=== PATIENT | female | born 1985 | race Caucasian/White ===

== ENCOUNTER 2016-11-30 11:53 | Emergency (ER) | payer OTHER ==
[2016-11-30 11:57] VITALS: BP 109/71; PULSE 90; TEMP 98.2; BMI 26.2
[2016-11-30 12:59] LABS: URINE APPEARANCE CLOUDY; URINE BILIRUBIN NEGATIVE (NEGATIVE); URINE COLOR YELLOW; URINE GLUCOSE (UA) NEGATIVE (NEGATIVE); URINE KETONE 1+ (NEGATIVE); URINE NITRITE NEGATIVE (NEGATIVE); URINE UROBILINOGEN NEGATIVE E.U./dl (0.2-1.0)
[2016-11-30 13:03] LABS: URINE BLOOD 3+ (NEGATIVE); URINE LEUK ESTERASE 3+ (NEGATIVE); URINE PROTEIN 2+ (NEGATIVE)
[2016-11-30 13:09] LABS: URINE BACTERIA FEW /hpf (NONE SEEN); URINE MUCUS RARE; URINE RBC 495 /hpf (0-3); URINE WBC 1779 /hpf (3-5)
--- NOTE | 2016-11-30 13:10 | PDOC ---
History of Present Illness - General Chief Complaint: Urinary Problem Stated Complaint: ABD PAIN Time Seen by Provider: 11/30/16 12:18 History Source: Patient - History of Present Illness Timing/Duration: reports: other Quality: reports: cramping Past History - Past Medical History Allergies/Adverse Reactions: Allergies Allergy/AdvReac Type Severity Reaction Status Date / Time No Known Allergies Allergy Verified 11/30/16 11:57 Home Medications: Ambulatory Orders No Home Medications 0 dose .ROUTE UTDICT 05/25/14 Nitrofurantoin Monohyd/M-Cryst [Macrobid -] 100 mg PO BID #14 capsule 11/30/16 Other medical history: DENIES. - Surgical History Abdominal Surgery: Yes Cholecystectomy: Yes - Psycho/Social/Smoking Cessation Hx Anxiety: No Suicidal Ideation: No Smoking Status: No Smoking History: Never smoked Number of Cigarettes Smoked Daily: 0 Hx Alcohol Use: No Drug/Substance Use Hx: No Substance Use Type: None Hx Substance Use Treatment: No Review of Systems - Review of Systems Constitutional: No: Chills, Fever ABD/GI: No: Constipated, Diarrhea, Nausea, Vomiting : Yes: Dysuria, Frequency. No: Flank Pain, Hematuria *Physical Exam - Vital Signs Last Vital Signs Temp Pulse Resp BP Pulse Ox 98.2 F 90 18 109/71 99 11/30/16 11:54 11/30/16 11:54 11/30/16 11:54 11/30/16 11:54 11/30/16 11:54 - Physical Exam General Appearance: Yes: Appropriately Dressed. No: Apparent Distress HEENT: positive: Normal Voice Neck: positive: Supple Respiratory/Chest: negative: Respiratory Distress Female Pelvic Exam: positive: normal external exam. negative: CMT, discharge, lesions, adnexal tenderness Gastrointestinal/Abdominal: positive: Tender (minimal ttp to suprapubic area diffusely, NT over mcburneys). negative: Soft, Distended, Guarding Musculoskeletal: negative: CVA Tenderness Integumentary: positive: Dry, Warm Neurologic: positive: Fully Oriented, Alert, Normal Mood/Affect ED Treatment Course - ADDITIONAL ORDERS Additional order review: Laboratory Results 11/30/16 12:34 Urine Color Yellow Urine Appearance Cloudy Urine pH 5.0 Ur Specific [place] 1.016 Urine Protein 2+ H Urine Glucose (UA) Negative Urine Ketones 1+ H Urine Blood 3+ H Urine Nitrite Negative Urine Bilirubin Negative Urine Urobilinogen Negative Ur Leukocyte Esterase 3+ H Medical Decision Making - Medical Decision Making 11/30/16 13:08 31-year-old female, no significant history, here with pelvic pain with urinary frequency and possible dysuria since yesterday. Denies flank pain, nausea, vomiting, fever or chills. Also complaining of yellowish vaginal discharge on and off times one month, no door or itch. Denies any STDs, and states she is currently sexually active with long-time male partner. Pt well clare and stable w / minimal suprapubic ttp diffusely and unremarkable pelvic. Will r/o uti. STD and genital cxs pendig 11/30/16 13:43 UA w/ LE, proteins and bld. Will tx. No prior ucx on records. Will not tx empirically for vag discharge at this time. No e/o PID. Pt to call for results *DC/Admit/Observation/Transfer Diagnosis at time of Disposition: Pelvic pain, Dysuria, Vaginal discharge - Discharge Dispostion Disposition: HOME Condition at time of disposition: Stable - Prescriptions Prescriptions: Nitrofurantoin Monohyd/M-Cryst [Macrobid -] 100 mg PO BID #14 capsule - Patient Instructions Printed Discharge Instructions: Urinary Tract Infection Additional Instructions: Please call [phone] for test results
== END 2016-11-30 13:48 | disposition home or self-care (01) ==
LOC: JERFT 11:53
DX: N39.0 Urinary tract infection, site not specified (principal); B96.89 Other specified bacterial agents as the cause of diseases classified elsewhere
CPT/HCPCS: 36415; 81003; 81015; 84703; 87070; 87086; 87186; 87205; 87491; 87591; 99282-25